=== PATIENT | male | born 1985 | race Caucasian/White ===

== ENCOUNTER 2017-12-08 12:26 | Emergency (ER) | payer SELFPAY, OTHER ==
[2017-12-08] MEDS: PERCOCET 5MG/325MG TAB PO (14:54)
[2017-12-08] MEDS: KETOROLAC 30 MG/ML VIAL (J1885) IM (14:55)
== END 2017-12-08 15:17 | disposition home or self-care (01) ==
LOC: M ED 12:26
DX: S39.012A Strain of muscle, fascia and tendon of lower back, initial encounter (principal); X58.XXXA Exposure to other specified factors, initial encounter; Y92.89 Other specified places as the place of occurrence of the external cause; R35.0 Frequency of micturition
CPT/HCPCS: J1885

== ENCOUNTER → 2018-07-07 | Outpatient (REF) | payer OTHER ==
[2018-07-07 17:58] LABS: ANION GAP 9 MEQ/L (8-16); BLOOD UREA NITROGEN 10 MG/DL (7-18); CALCIUM LEVEL 9.1 MG/DL (8.5-10.1); CARBON DIOXIDE LEVEL 30 MEQ/L (21-32); CHLORIDE LEVEL 101 MEQ/L (98-107); CREATININE FOR GFR 0.95 MG/DL (0.70-1.30); GLOMERULAR FILTRATION RATE > 60.0 (>60); GLUCOSE, FASTING 82 MG/DL (70-100); POTASSIUM SERUM 4.4 MEQ/L (3.5-5.1); SODIUM LEVEL 140 MEQ/L (136-145)
== END ==
LOC: M SFHCCLAY 09:49
DX: Z83.3 Family history of diabetes mellitus (principal); F41.9 Anxiety disorder, unspecified